=== PATIENT | male | born 1950 ===

== ENCOUNTER → 2023-08-17 | Outpatient (CLI) | payer MEDICARE, OTHER ==
--- NOTE | 2023-08-17 13:01 | CTL ---
EXAMINATION TYPE: CT Low Dose Lung DATE OF EXAM ORDERED: 08/17/2023 HISTORY: Lung cancer screening. Initial exam. The left comparison: None TECHNIQUE: Multiple axial images are obtained through the thorax without use of IV contrast and utili zing low dose technique for lung cancer screening. FINDINGS: There are mild to moderate emphysematous changes. There is mild pleural-parenchymal scarring in the a pices. There is a somewhat ill-defined 6.1 mm nodular density in the right upper lobe. There is a tiny 1 to 2 mm nodule in the left upper lobe. There is no airspace consolidation or abnormal interstitial density. There is no pleural effusion, pleural thickening or pneumothorax. The great vessels chest are normal is no mediastinal, hilar or axillary adenopathy. Limited scanning through the upper abdomen reveals a focal dense pancreatic calcification with no oth er significant abnormality. No focal osseous lesions are seen. IMPRESSION: 1. Lung RADS category 3. Follow-up CT chest in 6 months is recommended. 2. Emphysematous changes. 3. No acute cardiopulmonary disease.
== END | disposition home or self-care (01) ==
LOC: RADCTMAIN 08:20
PROVIDERS: ATTEND Family Medicine
DX: Z12.2 Encounter for screening for malignant neoplasm of respiratory organs (principal); J43.9 Emphysema, unspecified; F17.210 Nicotine dependence, cigarettes, uncomplicated
CPT/HCPCS: 71271

== ENCOUNTER → 2024-09-26 | Outpatient (CLI) | payer MEDICARE, OTHER ==
--- NOTE | 2024-09-26 15:34 | CT ---
EXAMINATION TYPE: CT chest wo con DATE OF EXAM: 09/26/2024 3:19 PM COMPARISON: 08/17/2023. CLINICAL INDICATION: Male, 73 years old with history of R91.8 LUNG NODULE R05.9 COUGH; PHH, cough, no dules TECHNIQUE: Multiple axial images were obtained through the chest. Sagittal and coronal reformats were created for review. MIP was performed on a separate workstation. Contrast used: mL of (None if empty) Oral contrast used: (None if empty) CT DLP: 437 mGycm, Automated exposure control for dose reduction was used. FINDINGS: LUNGS/ PLEURA: Moderate to severe centrilobular emphysema changes. Reticulation with some nodular lik e opacities in the right middle lobe and right lower lobe posteriorly. Prior on 08/17/2023. There may be a nodule in the right middle lobe possible airspace disease superimposed on emphysema. No focal c onsolidation, pneumothorax or pleural effusion. AIRWAY: Patent and unremarkable. HEART: Size within normal limits.Atherosclerosis of the arterial vasculature. MEDIASTINUM: No gross evidence of adenopathy. VASCULATURE: No aortic aneurysm. MUSCULOSKELETAL: No acute osseous abnormalities SOFT TISSUES/LYMPH NODES: Unremarkable. LOWER NECK: No significant findings. UPPER ABDOMEN: No significant findings. IMPRESSION: Marked severe emphysema with nodular like opacities in the right middle lobe and right lower lobe pos teriorly. Given a few opacified large airways findings could represent COPD changes with retained sec retions. Nodular density on prior CT was actually in the middle lobe and is in the area of suspected infectious/inflammatory process superimposed on emphysema. Short-term follow-up recommended in 3 months to ensure infectious/diameter process has resolved. [facility], , 09/26/2024 3:32 PM
== END | disposition home or self-care (01) ==
LOC: RADCTMAIN 14:43
PROVIDERS: ATTEND Family Medicine
DX: J43.9 Emphysema, unspecified (principal); R91.8 Other nonspecific abnormal finding of lung field
CPT/HCPCS: 71250

== ENCOUNTER → 2024-11-21 | Outpatient (CLI) | payer MEDICARE, OTHER ==
--- NOTE | 2024-11-21 07:53 | CT ---
EXAMINATION TYPE: CT chest wo con DATE OF EXAM: 11/21/2024 COMPARISON: Chest CT September 26, [address] 2022 HISTORY: Cough, emphysema CT DLP: 369.9 mGycm. Automated Exposure Control for Dose Reduction was Utilized. TECHNIQUE: CT scan of the thorax is performed without IV contrast. FINDINGS: LUNGS: Persistent moderate to severe underlying emphysematous change is redemonstrated. Stable tiny n odularity and reticular scarring in the right middle lobe periphery axial images 34 through 39. There is more central groundglass opacity in the right middle lobe on current study and more prominent ret icular nodular increased opacities in the right lower lobe. Left lung remains clear. No pleural effus ion or pneumothorax seen bilaterally. MEDIASTINUM: Some prominent mediastinal lymph nodes remain present. No cardiomegaly or pericardial effusion is seen. There is moderate to severe three-vessel coronary artery calcification redemonstrat ed OTHER: A few diverticula near the splenic flexure are seen. There is scoliotic curvature with multile macey spurring in the thoracic spine redemonstrated. IMPRESSION: Moderate to advanced underlying emphysematous change redemonstrated with stable linear an d slightly nodular scarring in the right middle lobe but there is new and worsening groundglass and r eticulonodular opacities in the central right middle lobe and right lower lobe. Atypical infectious p rocesses in the differential. Other etiologies are not excluded. Consider pulmonary referral to [facility] evaluate. [facility], , 11/21/2024 7:51 AM
== END | disposition home or self-care (01) ==
LOC: RADCTMAIN 06:50
PROVIDERS: ATTEND Family Medicine
DX: J43.9 Emphysema, unspecified (principal); R93.89 Abnormal findings on diagnostic imaging of other specified body structures
CPT/HCPCS: 71250

== ENCOUNTER → 2025-03-03 | Outpatient (CLI) | payer MEDICARE, OTHER ==
[2025-03-03 09:06] LABS: African American GFR (CKD) 82 (>60 ml/min/1.73 sqM); Blood Urea Nitrogen 12 mg/dL (9-20); Non-African American GFR(CKD) 71 (>60 ml/min/1.73 sqM)
--- NOTE | 2025-03-03 10:10 | CT ---
EXAMINATION TYPE: CT chest w con CT DLP: 356.9 mGycm, Automated exposure control for dose reduction was used. DATE OF EXAM: 03/03/2025 10:01 AM COMPARISON: Chest radiograph 12/18/2024, CT chest 11/21/2024, 09/26/2024, CT low-dose lung 08/17/2023 CLINICAL INDICATION:Male, 74 years old with history of J18.1 LOBAR PNEUMONIA, UNSPECIFIED ORGANISM; P HH, Lobar pneumonia. TECHNIQUE: Multiple axial images were obtained through the chest following the administration of 100 cc of Isovue 300. . Coronal and sagittal reformats reviewed. FINDINGS: LUNGS/ PLEURA: Moderate centrilobular emphysematous changes. No pleural effusion, pneumothorax, focal consolidation. Improvement in previously demonstrated right middle lobe reticulonodular opacities fr om prior exam. Minimal dependent bilateral lower lobe subsegmental atelectasis. Stable benign 2 mm l eft upper lobe pulmonary nodule (series 4, image 29). No new suspicious pulmonary nodule or mass. AIRWAY: Patent and unremarkable.. HEART: Size within normal limits. . No pericardial effusion. Mild to moderate coronary artery calcifi cations present. MEDIASTINUM: No evidence of adenopathy. VASCULATURE: No aortic aneurysm. Mild to moderate atherosclerotic calcification of the aorta and its branches. No visualized pulmonary embolism. MUSCULOSKELETAL: No acute osseous abnormalities. Mild S-shaped scoliotic curvature of the thoracolumb ar spine. Multilevel degenerative disc disease. SOFT TISSUES/LYMPH NODES: Unremarkable. LOWER NECK: No significant findings. UPPER ABDOMEN: Subcentimeter right hepatic dome stable cyst. Small hiatal hernia. IMPRESSION: 1. Near complete resolution of previously demonstrated right middle lobe reticulonodular opacities. N o new suspicious pulmonary nodule or mass. 2. Moderate emphysematous changes. [facility], , 03/03/2025 10:08 AM
== END | disposition home or self-care (01) ==
LOC: RADCTMAIN 08:28
PROVIDERS: ATTEND Internal Medicine
DX: J18.1 Lobar pneumonia, unspecified organism (principal); J43.9 Emphysema, unspecified
CPT/HCPCS: 82565; 84520; 71260; 36415; Q9967